=== PATIENT | female | born 1995 | race Hispanic/Latino ===

== ENCOUNTER 2017-03-08 08:52 | Emergency (ER) | payer OTHER ==
[~2017-03-08] VITALS: Ht 165.1 cm; Wt 79.5 kg
[2017-03-08] MEDS ORDERED: RIFAMPIN300 MG PO (09:40)
[2017-03-08 10:00] VITALS: BP 146/84
== END 2017-03-08 10:08 | disposition home or self-care (01) | DRG 951 ==
LOC: ED 08:52
DX: Z20.811 Contact with and (suspected) exposure to meningococcus (principal)

== ENCOUNTER 2018-04-21 16:01 | Emergency (ER) | payer OTHER ==
[~2018-04-21] VITALS: Ht 165.1 cm; Wt 52.7 kg
[~2018-04-21 16:01] MED LIST: RIFAMPIN300 MG PO
[2018-04-21 17:06] VITALS: BP 120/80
== END 2018-04-21 17:12 | disposition home or self-care (01) | DRG 951 ==
LOC: ED 16:01
DX: Z20.811 Contact with and (suspected) exposure to meningococcus (principal); Y99.0 Civilian activity done for income or pay

== ENCOUNTER 2019-08-29 | Emergency (ER) | payer OTHER ==
[2019-08-29] MEDS ORDERED: IBUPROFEN600 MG PO ×2 (08:31)
== END 2019-08-29 08:50 | disposition home or self-care (01) | DRG 605 ==
PROC: 2W3JX1Z Immobilization of Right Finger using Splint (ICD-10-PCS; principal; 2019-08-29)
DX: S20.312A Abrasion of left front wall of thorax, initial encounter (principal); S63.656A Sprain of metacarpophalangeal joint of right little finger, initial encounter; V43.53XA Car driver injured in collision with pick-up truck in traffic accident, initial encounter

== ENCOUNTER 2020-01-11 12:40 | Emergency (ER) | payer OTHER ==
[~2020-01-11] VITALS: Ht 167.6 cm; Wt 93.1 kg
[~2020-01-11 12:40] MED LIST changes: +IBUPROFEN600 MG PO
[2020-01-11 14:36] VITALS: BP 138/93
== END 2020-01-11 14:35 | disposition home or self-care (01) | DRG 556 ==
LOC: ED 12:40
DX: M25.572 Pain in left ankle and joints of left foot (principal); M25.571 Pain in right ankle and joints of right foot; X50.0XXA Overexertion from strenuous movement or load, initial encounter; Y92.009 Unspecified place in unspecified non-institutional (private) residence as the place of occurrence of the external cause

== ENCOUNTER → 2021-03-12 | Outpatient (REF) | END | disposition home or self-care (01) | DRG 866 | LOC: LAB 15:28 | PROVIDERS: ATTEND Family Medicine | DX: B34.2 Coronavirus infection, unspecified (principal) ==